=== PATIENT | male | born 1970 | race Caucasian/White ===

== ENCOUNTER 2018-12-10 05:39 | Outpatient (CLI) | payer BC ==
[~2018-12-10] VITALS: Ht 177.8 cm; Wt 99.8 kg
[2018-12-10] MEDS ORDERED: OMEP20TA33 PO (12:01)
[2018-12-10] MEDS ORDERED: LORA10TA76 PO (12:01)
[2018-12-10] MEDS ORDERED: SIMV20TA3 PO (12:01)
[2018-12-10] MEDS ORDERED: LEVO100T7 PO (12:01)
== END 2018-12-10 12:06 | disposition home or self-care (01) ==
LOC: PREOP 05:39
PROVIDERS: ATTEND Surgery
DX: Z01.818 Encounter for other preprocedural examination (principal)

== ENCOUNTER 2018-12-17 05:54 | Day surgery (SDC) | payer BC, OTHER ==
[~2018-12-17] VITALS: Ht 177.8 cm; Wt 99.8 kg
[2018-12-17] VITALS (12 sets, daily range): BP systolic 103–141; BP diastolic 61–88
[~2018-12-17 05:54] MED LIST: LEVO100T7 PO; LORA10TA76 PO; OMEP20TA33 PO; SIMV20TA3 PO
[2018-12-17] MEDS ORDERED: ceFAZolin 2 GM/50 ML NS 50 ML IV ONE (06:30)
[2018-12-17] MEDS ORDERED: ceFAZolin 2 GM/50 ML NS 50 ML ONE (06:31)
[2018-12-17] MEDS: LACTATED RINGERS 1,000 ML IV SCH ×2 (06:38→08:50)
[2018-12-17] MEDS ORDERED: MIDAZOLAM 2 MG/2 ML (VERSED) VIAL ONE (07:20)
[2018-12-17] MEDS ORDERED: ONDANSETRON 4 MG/2 ML (SDV) Z0FRAN ONE (07:20)
[2018-12-17] MEDS ORDERED: LIDOCAINE PF 2% 5 ML (XYLOCAINE) VIAL ONE (07:20)
[2018-12-17] MEDS ORDERED: fentaNYL INJECTION 100 MCG/2 ML AMP ONE (07:20)
[2018-12-17] MEDS ORDERED: SEVOFLURANE (ULTANE) 15 ML INHAL SOLN ONE ×4 (07:20→09:09)
[2018-12-17] MEDS ORDERED: proPOfol 200 MG/20 ML (DIPRIVAN) VIAL IV ONE (07:20)
[2018-12-17] MEDS ORDERED: KETOROLAC 30 MG/ML VIAL ONE (07:20)
[2018-12-17] MEDS ORDERED: BUP/EPI 0.5% 1:200,000 (SENSORCAINE) 30 ML VIAL ONE (07:29)
[2018-12-17] MEDS ORDERED: LIDOCAINE 1% INJ 20 ML 20 ML VIAL ONE (07:29)
[2018-12-17] MEDS ORDERED: ROCURONIUM 10 MG/ML 5 ML SYRINGE IV ONE (08:27)
[2018-12-17] MEDS ORDERED: NEOSTIGMINE 1 MG/ML 5 ML SYRINGE ONE (08:59)
[2018-12-17] MEDS ORDERED: GLYCOPYRROLATE 0.2 MG/ML (ROBINUL) 2 ML VIAL ONE (08:59)
--- NOTE | 2018-12-17 09:10 | Progress Note-Post Operative ---
Post-Operative Progess Note Surgeon (s)/Cathead Worker (s) Surgeon MARY KATE BENTON DO Cathead Worker: Dr. Russell Pre-Operative Diagnosis umbilical hernia Post-Operative Diagnosis incarcerated umbilical hernia Procedure & Operative Findings Date of Procedure 12/17/18 Procedure Performed/Findings lap incarcerated umbilical hernia repair Anesthesia Type gen Estimated Blood Loss Estimated blood loss (mL): min Specimens/Packing Specimens Removed none MARY KATE BENTON DO December 17, 2018 09:10
[2018-12-17] MEDS ORDERED: ACHD5005 PO (09:11)
[2018-12-17] MEDS ORDERED: DOCU-143 PO (09:11)
--- NOTE | 2018-12-17 09:14 | Discharge Inst-Simple/Standard ---
Discharge Inst-Standard Discharge Medications New, Converted or Re-Newed RX: RX on Chart Patient Instructions/Follow Up Plan of Care/Instructions/FU: 2-3 weeks Eric Activity as Tolerated: No Discharge Diet: Regular Diet Other Inst to Patient Follow up Appt: Make appointment for 2-3 weeks. Instructions: No lifting greater than 10 pounds. No strenuous activity. May shower in 24 hours, no tub bath or soaking. Use incentive spirometer at home as directed. No Smoking Skin/Wound Care: May remove bandage in 48 hours. You have special glue over incisions it will fall off on its own. Symptoms to Report: Appetite Changes, Extremity Discoloration, Numbness/Tingling, Swelling Increased, Bleeding Excessive, Eyesight Changes, Pain Increased, Urine Color Change, Constipation(Persistent), Fever over 101 degree F, Pain/Pressure in chest, Urinating Difficulty, Cough Up/Vomit Blood, Heart Beat Irreg/Pounding, Pain/Pressure in jaw, Vaginal Bleeding Increase, Cramps in feet or legs, Lightheadedness, Pain/Pressure in shoulder, Diarrhea(Persistent), Memory Changes Suddenly, Questions/Concerns, Weight gain consecutive days, Dizziness/Fainting, Nausea/Vomiting, Shortness of Breath, Weight gain over 2 pounds If questions or concerns contact your physician Or seek help at emergency department. MARY KATE BENTON DO December 17, 2018 09:14
[2018-12-17] MEDS ORDERED: ONDANSETRON 4 MG/2 ML (SDV) Z0FRAN IVP PRN (09:30)
[2018-12-17] MEDS ORDERED: MEPERIDINE (DEMEROL) INJ 50 MG/ML IVP ONE (09:30)
[2018-12-17] MEDS ORDERED: HYDROmorphone 2 MG/ML VIAL (DILAUDID) IV ONE (09:30)
[2018-12-17] MEDS ORDERED: morphine INJ 10 MG/ML 1ML (SYR OR VIAL) IVP ONE (09:30)
[2018-12-17] MEDS ORDERED: HYDROcodone/APAP 5 MG/325 MG (LORTAB) TAB ONE (10:43)
[2018-12-17] MEDS ORDERED: HYDROcodone/APAP 5 MG/325 MG (LORTAB) TAB PO ONE (11:30)
--- NOTE | 2018-12-17 11:45 | NUR ---
CALLED DR. BENTON TO GET A DIFFERENT PAIN MEDICATION FOR THE PATIENT. PATIENT STATES, "I'VE HAD HYDROCODONE BEFORE AND IT NEVER DOES ANYTHING FOR ME. I USUALLY HAVE BETTER LUCK WITH PERCOCET." DR. BENTON WILL BE OVER TO SEE THE PATIENT.
[2018-12-17] MEDS ORDERED: OXYC-199 PO (12:12)
--- NOTE | 2018-12-17 12:20 | NUR ---
PRESCRIPTION FOR PERCOCET GIVEN TO THE PATIENT AND THE OTHER PRESCRIPTION DISPOSED OF.
--- NOTE | 2018-12-17 14:27 | Anesthesia-General Post-Op ---
General Patient Condition Mental Status/LOC: Same as Preop Cardiovascular: Satisfactory Nausea/Vomiting: Absent Respiratory: Satisfactory Pain: Controlled Complications: Absent Post Op Complications Complications None Follow Up Care/Instructions Patient Instructions None needed. Anesthesia/Patient Condition Patient Condition Patient is doing well, no complaints, stable vital signs, no apparent adverse anesthesia problems. No complications reported per nursing. [place] [facility]: Yes IVAN DURHAM CRNA December 17, 2018 14:27
--- NOTE | 2018-12-17 16:09 | OPERATIVE REPORT ---
DATE OF SERVICE: 12/17/2018 PREOPERATIVE DIAGNOSIS: Umbilical hernia. POSTOPERATIVE DIAGNOSIS: Incarcerated umbilical hernia. PROCEDURE: Laparoscopic incarcerated umbilical hernia repair. SURGEON: Mary Kate Reyes DO AUTOMATIC THREAD WINDER: Dr. Russell, assisted in retraction, dissection and closure. ANESTHESIA: General. ESTIMATED BLOOD LOSS: Minimal. COMPLICATIONS: None. INDICATIONS: The patient is a 48-year-old female with an umbilical hernia. He understands risks and benefits and wished to proceed with procedure. Consent was signed in the chart. PROCEDURE IN DETAIL: The patient was taken to the operating suite. He was prepped and draped in sterile fashion. Surgical pause was performed. Incision was made in the left upper quadrant, taken down through the fascia, through the muscle and through the peritoneum. Balloon trocar was inserted and pneumoperitoneum was achieved. Under direct visualization of the laparoscope, a 5 mm trocar was placed in the right lower quadrant and a 5 mm trocar was placed in left lower quadrant. The hernia was noted and had incarcerated fat in it. The LigaSure was then used to take down the fat pad and dissect out the hernia and continue to the dissection until all the fat that was incarcerated was removed. An echo 4.5 inch Echo Ventralight mesh was then inserted into the abdomen and grasped through a stab incision at the umbilicus and balloon insufflated and the mesh was then secured circumferentially using SecureStrap Tacker. An inner crown was created as well and then the fat pad that was taken down was then reattached up to the abdominal wall using SecureStrap Tacker. The trocars were removed. The abdomen was then desufflated. The peritoneum was then closed using 3-0 Vicryl. The fascia was then closed using 0 Vicryl. The skin was then closed using 4-0 Monocryl in a subcuticular fashion. The area was then washed and dried and Skin Affix was placed over the incisions. Tonsil ball was then placed in the umbilicus and a Tegaderm was placed over it and suctioned down with a needle syringe. The patient tolerated the procedure well without any complications, taken to recovery room in stable condition. Job ID: [id number] DocumentID: [id number] Dictated Date: 12/17/2018 10:54:56 Raveler Date: 12/17/2018 16:08:39 Dictated By: MARY KATE REYES DO
== END 2018-12-17 12:30 | disposition home or self-care (01) ==
LOC: SDC 05:54
PROVIDERS: ATTEND Surgery
DX: K42.0 Umbilical hernia with obstruction, without gangrene (principal); K21.9 Gastro-esophageal reflux disease without esophagitis; Z79.899 Other long term (current) drug therapy
CPT/HCPCS: 87081

== ENCOUNTER → 2021-08-28 | Outpatient (CLI) | payer BC ==
[~2021-08-28] MED LIST changes: +ACHD5005 PO; +DOCU-143 PO; +OXYC-199 PO; +SIMV20TA26 PO; -SIMV20TA3 PO
--- NOTE | 2021-08-28 13:43 | Diagnostic Imaging Report ---
INDICATION: Left-sided neck lymphadenopathy. The right lobe of thyroid measures 4.2 x 2.0 x 2.1 cm. The left lobe measures 3.4 x 2.1 x 1.9 cm. Isthmus is 2 mm in thickness. Both lobes of thyroid are heterogeneous. There is a mixed solid and cystic subcentimeter nodule in the mid upper pole right lobe of the thyroid measuring approximately 7 mm. There is a questionable nodule versus a parenchymal head heterogeneity in the upper pole of the left lobe of the thyroid measuring 2.0 x 1.2 x 1.3 cm. 2nd mixed echogenicity nodule mid to lower pole left lobe it measures 1.1 x 0.9 cm. There is a lymph node in the left neck measuring 1.7 x 0.7 x 1.0 cm. 2nd smaller lymph node in the upper portion left neck measures 1.3 x 0.5 x 1.0 cm. Normal sized lymph node on the right measures 1.2 x 0.5 x 0.7 cm. IMPRESSION: Thyroid heterogeneity. There is a questionable dominant nodule in the upper pole of the left lobe of the thyroid. Fine-needle aspiration of this region could be performed for further evaluation. No other significant abnormalities seen. Dictated by: Dictated on workstation # [id number]
== END ==
LOC: RAD 12:45
PROVIDERS: ATTEND Family Medicine
DX: R59.0 Localized enlarged lymph nodes (principal)
CPT/HCPCS: 76536

== ENCOUNTER → 2021-09-12 | Outpatient (CLI) | payer BC ==
[~2021-09-12] VITALS: Ht 178 cm; Wt 108.0 kg
[~2021-09-12] MED LIST changes: +LIDOCAINE 1% INJ 20 ML VIAL INJ ONE
--- NOTE | 2021-09-12 14:22 | Diagnostic Imaging Report ---
INDICATION: Left thyroid nodule. Patient presents for ultrasound-guided fine-needle aspiration and biopsy. Patient was brought to the procedure room and placed on table in the supine position. Ultrasound imaging of the left neck was performed to evaluate appropriate entry site. Left neck was then prepped and draped in usual sterile fashion. Small amount 1% lidocaine was utilized for local anesthesia. A total of 4 passes were made into the nodular area in the upper pole of the left lobe of the thyroid utilizing 25-gauge needles and fine-needle aspiration technique. A single pass was made with a Rotex needle and Rotex biopsy was performed. Needle was removed and hemostasis was obtained. Patient tolerated the procedure well and left the department in stable condition. IMPRESSION: Successful ultrasound guided fine needle aspiration Rotex biopsy of left upper pole thyroid nodule. Pathology results are currently pending. Dictated by: Dictated on workstation # [id number]
== END ==
LOC: RAD 11:01
PROVIDERS: ATTEND Family Medicine
DX: E04.1 Nontoxic single thyroid nodule (principal)
CPT/HCPCS: 10005; 88173; 88305

== ENCOUNTER → 2021-09-25 | Outpatient (CLI) | payer BC, OTHER ==
[~2021-09-25] MED LIST changes: -LIDOCAINE 1% INJ 20 ML VIAL INJ ONE
[2021-09-25 13:34] VITALS: BP 126/80
== END ==
LOC: CARD 14:00
PROVIDERS: ATTEND Nurse Practitioner Family
DX: I51.7 Cardiomegaly (principal)
CPT/HCPCS: 93306; 93351

== ENCOUNTER 2023-05-03 20:43 | Emergency (ER) | payer BC ==
[~2023-05-03] VITALS: Ht 177.8 cm; Wt 104.3 kg
[2023-05-03 21:24] LABS: BASOPHILS # (AUTO) 0.1 10^3/uL (0.0-0.1); BASOPHILS % (AUTO) 1 % (0-10); EOSINOPHILS # (AUTO) 0.2 10^3/uL (0.0-0.3); EOSINOPHILS % (AUTO) 2 % (0-10); HEMATOCRIT 46 % (40-54); HEMOGLOBIN 15.6 g/dL (13.3-17.7); LYMPHOCYTES # (AUTO) 3.4 10^3/uL (1.0-4.0); LYMPHOCYTES % (AUTO) 33 % (12-44); MEAN CORPUSCULAR HEMOGLOBIN 30 pg (25-34); MEAN CORPUSCULAR HGB CONC 34 g/dL (32-36); MEAN CORPUSCULAR VOLUME 89 fL (80-99); MEAN PLATELET VOLUME 9.6 fL (9.0-12.2); MONOCYTES # (AUTO) 0.9 10^3/uL (0.0-1.0); MONOCYTES % (AUTO) 9 % (0-12); NEUTROPHILS # (AUTO) 5.6 10^3/uL (1.8-7.8); NEUTROPHILS % (AUTO) 54 % (42-75); PLATELET COUNT 216 10^3/uL (130-400); WHITE BLOOD COUNT 10.2 10^3/uL (4.3-11.0)
[2023-05-03 21:26] LABS: ALBUMIN 4.2 GM/DL (3.2-4.5)
[2023-05-03 21:27] LABS: POTASSIUM 3.5 MMOL/L (3.6-5.0)
[2023-05-03 21:28] LABS: CALCIUM 8.9 MG/DL (8.5-10.1)
[2023-05-03 21:29] LABS: TOTAL PROTEIN 7.7 GM/DL (6.4-8.2)
--- NOTE | 2023-05-03 21:29 | ED General ---
General Chief Complaint: Dizziness/Syncope Stated Complaint: SYNCOPAL EPISODE Nursing Triage Note: PT AMB, WITH NO DIFFICULITY, TO RM 5 WITH CC OF POSSIBLE SYNCOPAL EPSIODE AT APPROX 1999. PT FAMILY MEMBER AT BEDSIDE, WAS WITH PT DURING SYNCOPAL EPSIODE, STATES PT WAS DRINKING ETOH AND SMOKING WEED WHEN HIS BODY BECAME "LIMP" AND HIS HEAD "FELL FORWARD." PT FAMILY MEMBER STATES THAT PT EYES REMAINED OPEN AND PT WAS ABLE TO RESPOND "YES" TO FAMILY WHEN NAME WAS CALLED. PT FAMILY MEMBER REPORTS HAVING TO "STERBAL RUB" PT TO WAKE HIM UP. FAMILY STATES EMS WAS CONTACTED AND PT REFUSED TRANSPORT BY EMS. PT DENIES CP AT TIME OF TRIAGE. FAMILY DENIES PT FALLING AND HITTING HIS HEAD. 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 He had a "couple of pours" of bourbon this evening and took "2 or 3 hits off a dab pen" and his daughter states he was sitting and bent is head forward - she called his name and he jerked his head up. She states he then "slumped forward" and she had to rub his chest to get him to wake up. No confusion. He states he just "wanted to go to sleep". He states before the drink and dab he had a bit of an occipital headache that is gone now. Timing/Duration: 1 Hour Severity: Moderate Associated Systoms: Malaise, Syncope Allergies and Home Medications Allergies Coded Allergies: No Known Drug Allergies (Unverified , 12/10/18) Patient Home Medication List Home Medication List Reviewed: Yes Docusate Sodium (Colace) 100 Mg Capsule, 100 MG PO BID Prescribed by: MARY KATE BENTON on 12/17/18 0911 Hydrocodone Bit/Acetaminophen (Lortab 5 Mg Tablet) 1 Tab Tab, 1-2 TAB PO Q6H PRN for PAIN-MODERATE Prescribed by: MARY KATE BENTON on 12/17/18 0911 Levothyroxine Sodium (Levothyroxine Sodium) Unknown Strength Tablet, Unknown Dose PO DAILY, (Reported) Entered as Reported by: YOSEF SMILEY on 12/10/18 1201 Loratadine (Claritin) 10 Mg Tablet, 10 MG PO DAILY, (Reported) Entered as Reported by: YOSEF SMILEY on 12/10/18 1201 Omeprazole Magnesium (Prilosec Otc) 20 Mg Tablet.dr, 20 MG PO DAILY, (Reported) Entered as Reported by: YOSEF SMILEY on 12/10/18 1201 Oxycodone HCl/Acetaminophen (Percocet 5-325 mg Tablet) 1 Each Tablet, 1 TAB PO Q4H PRN for PAIN-MODERATE Prescribed by: MARY KATE BENTON on 12/17/18 1212 Simvastatin (Simvastatin) Unknown Strength Tablet, Unknown Dose PO DAILY, (Reported) Entered as Reported by: YOSEF SMILEY on 12/10/18 1201 Review of Systems Review of Systems Constitutional: see HPI EENTM: other ("dry mouth" "tastes salty") Respiratory: no symptoms reported Cardiovascular: no symptoms reported Gastrointestinal: no symptoms reported Genitourinary: no symptoms reported Musculoskeletal: no symptoms reported Skin: no symptoms reported Psychiatric/Neurological: Headache (prior to drinkgin and smoking the "dab" pen) Past Pxzceat-Nkqnzd-Pozyyr Hx Patient Social History Tobacco Use?: No Substance use?: Yes Substance type: Marijuana Substance frequency: Rarely Alcohol Use?: Yes Alcohol Frequency: Couple times a week Seasonal Allergies Seasonal Allergies: Yes Past Medical History Surgery/Hospitalization HX: HTN, HYPOTHYDROID Surgeries: No Respiratory: No Cardiac: No Neurological: No Genitourinary: No Gastrointestinal: Yes Abdominal Hernia, Gastroesophageal Reflux Musculoskeletal: No Endocrine: Yes Hypothyroidsim HEENT: No Cancer: No Psychosocial: No Integumentary: No Blood Disorders: No Physical Exam Vital Signs Vital Signs - First Documented 05/03/23 20:50 Temp 36.6 Pulse 72 Resp 16 B/P (MAP) 167/89 (115) Pulse Ox 98 O2 Delivery Room Air Capillary Refill : Less Than 3 Seconds Height, Weight, BMI Height: 5'10.00" Weight: 220lbs. 0.0oz. 99.962353he; 32.00 BMI Method: General Appearance: No Apparent Distress, WD/WN Eyes: Bilateral Eye Normal Inspection, Bilateral Eye PERRL, Bilateral Eye EOMI HEENT: PERRL/EOMI, Pharynx Normal Neck: Normal Inspection Respiratory: Lungs Clear, Normal Breath Sounds, No Accessory Muscle Use, No Respiratory Distress Cardiovascular: Normal Peripheral Pulses Gastrointestinal: Non Tender, Soft Extremity: Normal Inspection, Normal Range of Motion Neurologic/Psychiatric: Alert, Oriented x3, No Motor/Sensory Deficits, Normal Mood/Affect Skin: Normal Color, Warm/Dry Progress/Results/Core Measures Suspected Sepsis SIRS Temperature: Pulse: 72 Respiratory Rate: 16 Laboratory Tests 05/03/23 20:53: White Blood Count 10.2 Blood Pressure 167 /89 Mean: 115 Laboratory Tests 05/03/23 20:53: Creatinine 1.33H, Platelet Count 216, Total Bilirubin 0.4 Results/Orders Lab Results Laboratory Tests Test 05/03/23 20:53 Range/Units White Blood Count 10.2 4.3-11.0 10^3/uL Red Blood Count 5.15 4.30-5.52 10^6/uL Hemoglobin 15.6 13.3-17.7 g/dL Hematocrit 46 40-54 % Mean Corpuscular Volume 89 80-99 fL Mean Corpuscular Hemoglobin 30 25-34 pg Mean Corpuscular Hemoglobin Concent 34 32-36 g/dL Red Cell Distribution Width 13.1 10.0-14.5 % Platelet Count 216 130-400 10^3/uL Mean Platelet Volume 9.6 9.0-12.2 fL Immature Granulocyte % (Auto) 1 % Neutrophils (%) (Auto) 54 42-75 % Lymphocytes (%) (Auto) 33 12-44 % Monocytes (%) (Auto) 9 0-12 % Eosinophils (%) (Auto) 2 0-10 % Basophils (%) (Auto) 1 0-10 % Neutrophils # (Auto) 5.6 1.8-7.8 10^3/uL Lymphocytes # (Auto) 3.4 1.0-4.0 10^3/uL Monocytes # (Auto) 0.9 0.0-1.0 10^3/uL Eosinophils # (Auto) 0.2 0.0-0.3 10^3/uL Basophils # (Auto) 0.1 0.0-0.1 10^3/uL Immature Granulocyte # (Auto) 0.1 0.0-0.1 10^3/uL Sodium Level 136 135-145 MMOL/L Potassium Level 3.5 L 3.6-5.0 MMOL/L Chloride Level 105 98-107 MMOL/L Carbon Dioxide Level 20 L 21-32 MMOL/L Anion Gap 11 5-14 MMOL/L Blood Urea Nitrogen 19 H 7-18 MG/DL Creatinine 1.33 H 0.60-1.30 MG/DL Estimat Glomerular Filtration Rate 65 BUN/Creatinine Ratio 14 Glucose Level 129 H 70-105 MG/DL Calcium Level 8.9 8.5-10.1 MG/DL Corrected Calcium 8.7 8.5-10.1 MG/DL Total Bilirubin 0.4 0.1-1.0 MG/DL Aspartate Amino Transf (AST/SGOT) 24 5-34 U/L Alanine Aminotransferase (ALT/SGPT) 30 0-55 U/L Alkaline Phosphatase 55 40-136 U/L Total Protein 7.7 6.4-8.2 GM/DL Albumin 4.2 3.2-4.5 GM/DL My Orders Orders - DANIELLE LUCAS MD Ekg Tracing (05/03/23 20:58) Ed Iv/Invasive Line Start (05/03/23 21:18) Cbc And Automated Diff (05/03/23 21:18) Comprehensive Metabolic Panel (05/03/23 21:18) Lactated Ringers 1,000 Ml (Lactated Ring (05/03/23 21:40) Vital Signs/I&O 05/03/23 20:50 Temp 36.6 Pulse 72 Resp 16 B/P (MAP) 167/89 (115) Pulse Ox 98 O2 Delivery Room Air Capillary Refill : Less Than 3 Seconds Blood Pressure Mean: 115 Progress Note : Time: 22:04 Progress Note Patient seen and evaluated by me. Eval today includes Physical exam, CBC, CMP, EKG. Pertinent physical exam findings include WDWN male NAD. Stable VS. No abnormal findings on PE - Heart regular, lungs clear. No neurologic deficits. ddx includes intoxication, toxic effect of illicit substance Patient's labs reviewed and interpreted by me.His CBC is sandhya,. potassium minimally low at 3.5; CO2 low at 20 and Bun and creatinine slightly high at 19 and 1.33. Sugar 129 - rest is WNL. HIs ekg is reassuring with no ectopy or ST segment change. He is treated for apparent dehydration (both clinically and on labs) with 1 L of lactated ringers. Patient is essentially at baseline - just feels "relaxed". I recc close follow up with his PCP. I feel based on the above this occurrence was due to the combined THC and etoh. REturn precautions provided. ECG Initial ECG Impression Date: May 03, 2023 Initial ECG Impression Time: 21:10 Initial ECG Rate: 67 Initial ECG Rhythm: Normal Sinus Initial ECG Intervals MI 181 QRS 122 QTc 380 Initial ECG Impression: Normal Comment no ectopy, npo ST segment elevation or depression Departure Impression Primary Impression: toxic effect of thc Additional Impression: Mild dehydration Disposition: 01 HOME, SELF-CARE Condition: Improved Departure-Patient Inst. Decision time for Depature: 22:09 Referrals: KELVIN SMITH DO (PCP/Family) Primary Care Physician Patient Instructions: Dehydration, Adult ED Add. Discharge Instructions: Drink plenty of fluids to stay well-hydrated. Continue your daily medications as prescribed. I think it would be a good idea to not mix bourbon with a THC dab pen in the future. Please follow-up with your primary care physician, Dr. Smith this week Return to the emergency department for any new, concerning or emergent complaints Copy Copies To 1: KELVIN SMITH KATHRYN M MD May 03, 2023 21:29
[2023-05-03 21:31] LABS: BILIRUBIN,TOTAL 0.4 MG/DL (0.1-1.0)
[2023-05-03 21:33] LABS: CREATININE SERUM 1.33 MG/DL (0.60-1.30)
[2023-05-03] MEDS ORDERED: LACTATED RINGERS 1,000 ML 1,000 ML IV STA (21:40)
[2023-05-03 22:45] VITALS: BP 130/68
== END 2023-05-03 22:45 | disposition home or self-care (01) ==
LOC: EDUNIT# 20:43 → ER 20:47
DX: E86.0 Dehydration (principal); T40.715A Adverse effect of cannabis, initial encounter
CPT/HCPCS: 36415; 80053; 85025; 93005